=== PATIENT | male | born 1985 | race American Indian/Alaskan Native ===

== ENCOUNTER 2020-11-11 17:28 | Emergency (ER) | payer OTHER ==
[2020-11-11 18:01] VITALS: BP 162/94
--- NOTE | 2020-11-11 20:12 | XRay Report ---
Cervical spine complete 3 views INDICATION: Neck pain following injury IMPRESSION: There is loss of the normal cervical lordosis. There is slight grade 1 anterolisthesis of C4 on C5, age indeterminate. Minimal prevertebral soft tissue edema. No discrete fracture is identif ied. Signer Name: Stefan Burks MD Signed: 11/11/2020 8:08 PM Workstation Name: [id number]
--- NOTE | 2020-11-11 20:13 | XRay Report ---
Lumbar spine 3 views INDICATION: Low back pain following injury IMPRESSION: Mild bilateral neural foraminal narrowing at L5-S1 secondary to early facet arthropathy. Multilevel early discogenic degenerative changes are present. No fracture is identified. Signer Name: Stefan Burks MD Signed: 11/11/2020 8:08 PM Workstation Name: [id number]
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
--- NOTE | 2020-11-11 21:28 | Cat Scan Report ---
CT CERVICAL SPINE: 11/11/2020 INDICATION / CLINICAL INFORMATION: Trauma. COMPARISON: None available. FINDINGS: CT images of the cervical spine were obtained. Images are evaluated in the axial, coronal, and sagitt al planes. There is no evidence of acute abnormality. Subtle left convex scoliosis is centered at the cervicothoracic junction. Slight reversal of cervical lordosis is centered at the C4-5 level. There is no evidence of acute fracture or dislocation. CRANIOCERVICAL JUNCTION: Unremarkable. PARASPINAL STRUCTURES: Unremarkable IMPRESSION: No acute abnormality. All CT scans at this location are performed using dose reduction to ALARA by means of automated expos ure control. Signer Name: Nick Can MD Signed: 11/11/2020 9:23 PM Workstation Name: [id number]
--- NOTE | 2020-11-11 21:30 | Cat Scan Report ---
CT LUMBAR SPINE: 11/11/2020 INDICATION / CLINICAL INFORMATION: Low back pain. Trauma.. COMPARISON: None available. FINDINGS: CT images of the lumbar spine were obtained. Images are evaluated in the axial, coronal, and sagittal planes. There is no evidence of acute abnormality. Mild left convex scoliosis is centered at the L4 level. Vertebral body height is unremarkable. LEVEL BY LEVEL ANALYSIS: L5-S1: Moderate diffuse disc bulging, slightly more pronounced on the right. L4-5: Moderate symmetric diffuse disc bulging. L3-4: Minimal diffuse disc bulging. L2-3: Normal diffuse disc bulging. PARASPINAL STRUCTURES: Unremarkable. IMPRESSION: No acute abnormality. Mild degenerative change. All CT scans at this location are performed using dose reduction to ALARA by means of automated expos ure control. Signer Name: Nick Can MD Signed: 11/11/2020 9:25 PM Workstation Name: [id number]
== END 2020-11-11 22:29 | disposition home or self-care (01) ==
LOC: ED 17:28
DX: S16.1XXA Strain of muscle, fascia and tendon at neck level, initial encounter (principal); S39.012A Strain of muscle, fascia and tendon of lower back, initial encounter; Z79.899 Other long term (current) drug therapy; I10 Essential (primary) hypertension; E11.9 Type 2 diabetes mellitus without complications; V49.49XA Driver injured in collision with other motor vehicles in traffic accident, initial encounter; Y93.89 Activity, other specified; Y92.488 Other paved roadways as the place of occurrence of the external cause; Y99.8 Other external cause status
CPT/HCPCS: 72040; 72100; 72125; 72131; 99283